=== PATIENT | female | born 1970 | race Caucasian/White ===

== ENCOUNTER 2019-09-11 19:15 | Emergency (ER) | payer OTHER, SELFPAY ==
--- NOTE | ~2019-09-11 | CT_ITS ---
EXAMINATION: CT abdomen pelvis w con INDICATION: Abdominal pain TECHNIQUE: Computed tomographic images of the abdomen and pelvis were obtained after the administrati on of 100 cc of Omnipaque 350 intravenous contrast. The dose-length product (DLP) was 462.40 mGy-cm. Automated exposure control and iterative reconstruction technique were employed. COMPARISON: None available FINDINGS: A calcified nodule of the right middle lobe is consistent with old granulomatous disease. T he heart size is normal. The liver, spleen, and adrenal glands are normal. There are innumerable ston es in the nondistended gallbladder. There is fatty infiltration within the head of the pancreas. No p athologically enlarged abdominal or pelvic lymph nodes are identified. There is no free intraperitone al gas or evidence of bowel obstruction. There are multiple peripherally enhancing tubular structures posterior to the uterus. A small volume of pelvic ascites is present. Peripelvic cysts are noted in the left kidney. There is a tiny fat-containing umbilical hernia. IMPRESSION: 1. Findings in the pelvis consistent with tubo-ovarian abscesses. These findings were discussed with Dr. Connie Archer MD in the Emergency Department at 2123 hours on 09/11/2019. 2. Cholelithiasis without evidence of cholecystitis. Reviewed, dictated and finalized at location A. [employer] IMPRESSION: 1. Findings in the pelvis consistent with tubo-ovarian abscesses. These finding s were discussed with Dr. Connie Archer MD in the Emergency Department at 2123 hours on 09/11/2019. 2. Cholelithiasis without evidence of cholecystitis.
[2019-09-11 19:19] VITALS: BP 118/71; PULSE 115; RESP 20; TEMP 37.7; O2SAT 100
--- NOTE | 2019-09-11 19:34 | ED.ABDPAIN ---
HPI - Abdominal Pain General Chief Complaint: Abdominal Pain Stated Complaint: abd pain Time Seen by Provider: 09/11/19 19:25 Source: patient and RN notes reviewed Mode of arrival: ambulatory Limitations: no limitations History of Present Illness HPI narrative: Pt is a 49 y/o female who presents to the ED with c/o a 6/10 medial lower ABD pain which began a week ago. She denies radiation anywhere else in her body. Pt reports the pain is a cramping sensation. She reports passing gas alleviates her symptoms, but denies any aggravating factors. She also reports urinary frequency and chills, but denies a fever, chest pain, a cough, vomiting, diarrhea, or back pain. MD elicited complaint: abdominal pain (medial lower ABD) Pertinent past history: none Onset (ago): week(s) (1 week ago) Pain Consistency: constant Location: other (medial lower ABD) Severity: moderate Pain scale (0-10): 6 Quality: cramping Radiation: none Migration to: no migration Exacerbating factors: nothing Relieving factors: other (passing gas) Associated symptoms: chills and other (urinary frequency) Related Data Allergies Allergy/AdvReac Type Severity Reaction Status Date / Time No Known Allergies Allergy Unverified 07/10/13 13:49 Review of Systems Review of Systems: All systems reviewed & are unremarkable except as noted in HPI and below Constitutional: Constitutional: Reports chills and Denies fever(s) Cardiovascular: Cardiovascular: Denies chest pain Respiratory: Respiratory: Denies cough Gastrointestinal: Gastrointestinal: Reports abdominal pain (medial lower ABD), Denies diarrhea and Denies vomiting Genitourinary: Genitourinary: Reports urinary urgency Musculoskeletal: Musculoskeletal: Denies back pain [facility] Past Medical History Medical History (Updated 09/12/19 @ 00:08 by Connie Archer MD) No pertinent past medical history Surgical History Surgical History (Updated 09/11/19 @ 19:39 by Melyssa Hope) History of orthopedic surgery Social History Social History (Updated 09/11/19 @ 19:39 by Melyssa Hope) Smoking status: Never smoker Gender identity (if verbalized by the patient): Female Exam Const: General: no acute distress and well developed Orientation/consciousness: oriented to person, oriented to place, oriented to time and patient oriented x3 HENMT: Head: normocephalic Ears: external ears normal General nose exam: Normal external nose present Eyes: General: appearance normal, both eyes and all related structures Conjunctivae: conjunctivae normal Neck: Neck: normal visual inspection and full ROM Chest: Chest palpation & inspection: normal inspection of the chest and no tenderness Resp: Effort & Inspection: normal respiratory effort Auscultation: clear to auscultation bilaterally Cardio: Rate: tachycardic Rhythm: regular rhythm GI: GI Palp: Yes Soft to palpation and Yes Tenderness to palpation present (GI) (suprapubic) : Speculum Exam - Vagina: abnormal vaginal discharge white and No vaginal bleeding Bimanual exam- vagina & uterus: no cervical motion tenderness Bimanual Exam- Adnexa, other: tender bilaterally Skin: General skin exam: normal color and turgor normal Neuro: General: oriented to person, oriented to place, oriented to time and patient oriented x3 Cognition (Neuro): normal cognition Extrem: General: normal to inspection, full ROM and no pedal edema Psych: Appearance: grossly normal Mental Status: mental status grossly normal Affect: normal affect Course Reevaluation(s) Reevaluation #1: I advised patient to be admitted for IV antibiotics and evaluation by Dentistry Teacher. Patient refuses admission and insists on going home. She wants to leave against medical advice. She is competent to make medical decision for herself. Rx for Doxycycline will be given to patient. Date: 09/11/19 Time: 21:40 Vital Signs Vital signs: Vital Signs Temperature 37.7 C H 09/11/19 19:19 Pulse Rate 115 H 09/11
[2019-09-11 19:56] LABS: Hematocrit 33.6 % (37.0-47.0); Hemoglobin 10.5 g/dL (12.0-15.0); Mean Corpuscular HGB Conc 31.3 g/dl (32-36); Mean Corpuscular Hemoglobin 27.8 pg (26-34); Mean Corpuscular Volume 88.9 fl (80-100); Mean Platelet Volume 12.9 fl (7.4-10.4); Platelet Count Result 306 k/mm3 (150-375); Red Blood Count 3.78 M/mm3 (4.2-5.4); Red Cell Distribution Width 15.1 % (11.5-14.5); White Blood Count 20.2 K/mm3 (4.5-10.0)
[2019-09-11 20:02] LABS: Add Urine Microscopic? YES; Appearance Urine Cloudy (Clear); Bacteria Urine 2+ /hpf; Bilirubin Urine Negative (Negative); Blood Urine 1+ (Negative); Color Urine Amber (Yellow); Glucose Urine UA Negative (Negative); Ketones Urine Negative (Negative); Leukocyte Esterase Ur 2+ LEU/UL (Negative); Mucus Urine Heavy /lpf; Nitrate Urine Negative (Negative); Protein Urine 2+ mg/dL (Negative); Squamous Epithelial Cell Urine Many /hpf (Few); WBC Urine 51-75 /hpf
[2019-09-11 20:04] LABS: Specific Grav Ur 1.031 (1.001-1.035)
[2019-09-11 20:09] LABS: Blood Urea Nitrogen 8 mg/dL (7-17); Carbon Dioxide 28 mmol/L (22-30); Chloride 93 mmol/L (98-107); Estimated CRCL calculation 88 ml/min; Estimated Glomerular Filt Rate > 60; Glucose 120 mg/dL (65-105); Potassium 3.6 mmol/L (3.4-5.0); Sodium 136 mmol/L (137-145)
[2019-09-11 20:19] LABS: Lymphocytes Absolute Manual 2.02 K/mm3 (1.1-4.5); Monocytes Absolute Manual 1.01 K/mm3 (0.1-0.90); Monocytes Percent Manual 5 % (3-9); Neutrophils Percent Manual 85 % (46-73); Platelet Estimate Adequate (Adequate); Total Cells Counted 100
[2019-09-11 20:20] LABS: Anisocytosis 2+ (NORMAL); Hypochromasia 1+ (NORMAL)
[2019-09-11 20:21] LABS: Giant Platelets Present
[2019-09-11] MEDS: cefoTEtan DISODIUM INJ 2 GM in DEXTROSE 5% IN WATER 50 ML IVPB (22:49)
[2019-09-11 23:07] VITALS: BP 121/78; PULSE 108; RESP 16; O2SAT 100
== END 2019-09-11 23:55 | disposition left against medical advice (07) ==
PROVIDERS: Emergency Provider Emergency Medicine
DX: N70.93 Salpingitis and oophoritis, unspecified (principal); K80.20 Calculus of gallbladder without cholecystitis without obstruction
CPT/HCPCS: 36415; 74177; 80048; 81001; 81025; 85025; 87070; 87077; 87086; 87088; 87186; 87491; 87591; 87808; 96365; 96368; 99284; Q9967